=== PATIENT | female | born 1995 | race Caucasian/White ===

== ENCOUNTER 2017-05-06 20:14 | Emergency (ER) | payer BC ==
[2017-05-06] MEDS ORDERED: Adacel (T-DAP) 0.5 ML VIAL ONE (20:36)
[2017-05-06] MEDS ORDERED: Bacitracin Zinc 1 Packet ONE (21:52)
== END 2017-05-06 22:14 | disposition home or self-care (01) ==
LOC: NAV ERS 20:14
DX: S01.01XA Laceration without foreign body of scalp, initial encounter (principal); Z79.899 Other long term (current) drug therapy; V67.6XXA Passenger in heavy transport vehicle injured in collision with fixed or stationary object in traffic accident, initial encounter
CPT/HCPCS: 12004; 90471; 90715

== ENCOUNTER 2021-11-24 18:53 | Emergency (ER) | payer BC, SELFPAY ==
[2021-11-24] MEDS ORDERED: predniSONE 20 MG TAB ONE (19:09)
[2021-11-24] MEDS ORDERED: Sodium Chloride 0.9% 1,000 ML ONE (19:21)
[2021-11-24] MEDS ORDERED: Ketorolac Tromethamine 30 MG/ML VIAL ONE (20:31)
[2021-11-24] MEDS ORDERED: Albuterol Sulfate 2.5 mg/0.5 ml Neb ONE (20:31)
== END 2021-11-24 23:01 | disposition home or self-care (01) ==
LOC: NAV ERS 18:53
DX: J45.901 Unspecified asthma with (acute) exacerbation (principal)
CPT/HCPCS: 93005; 94640; 94760; 96361; 96374; J1885; J7050; J7512; J7611; J7620

== ENCOUNTER 2021-12-26 10:27 | Outpatient (CLI) | payer BC | END 2021-12-26 10:28 | disposition home or self-care (01) | LOC: NAV RAD 10:27 | PROVIDERS: ATTEND Nurse Practitioner Family | DX: J45.40 Moderate persistent asthma, uncomplicated (principal) | CPT/HCPCS: 71046 ==

== ENCOUNTER 2022-05-19 14:37 | Emergency (ER) | payer OTHER, BC ==
[2022-05-19] MEDS ORDERED: Ketorolac Tromethamine 60 MG/2 ML VIAL ONE (15:02)
== END 2022-05-19 15:57 | disposition home or self-care (01) ==
LOC: NAV ERS 14:37
DX: S63.502A Unspecified sprain of left wrist, initial encounter (principal); W01.0XXA Fall on same level from slipping, tripping and stumbling without subsequent striking against object, initial encounter
CPT/HCPCS: 96372; J1885

== ENCOUNTER 2024-04-08 18:44 | Emergency (ER) | payer OTHER ==
[2024-04-08] MEDS ORDERED: Ibuprofen 800 MG TAB ONE (19:34)
== END 2024-04-08 19:38 | disposition short-term general hospital (02) ==
LOC: NAV ERS 18:44
DX: M79.601 Pain in right arm (principal)
CPT/HCPCS: 99284

== ENCOUNTER 2024-12-11 05:10 | Emergency (ER) | payer OTHER ==
[2024-12-11] MEDS ORDERED: Naproxen 500 MG TAB ONE (05:32)
== END 2024-12-11 06:23 | disposition home or self-care (01) ==
LOC: NAV ERS 05:10
DX: S93.401A Sprain of unspecified ligament of right ankle, initial encounter (principal); R03.0 Elevated blood-pressure reading, without diagnosis of hypertension; Z79.899 Other long term (current) drug therapy; W18.42XA Slipping, tripping and stumbling without falling due to stepping into hole or opening, initial encounter; Y93.01 Activity, walking, marching and hiking; Y92.007 Garden or yard of unspecified non-institutional (private) residence as the place of occurrence of the external cause
CPT/HCPCS: 99283

== ENCOUNTER 2025-02-16 12:50 | Emergency (ER) | payer OTHER ==
[2025-02-16] MEDS ORDERED: Pantoprazole 40 MG VIAL ONE (13:51)
[2025-02-16] MEDS ORDERED: Famotidine/PF 20 mg/2ml Vial ONE (13:51)
[2025-02-16] MEDS ORDERED: Ondansetron PF 4 MG/2 ML Vial ONE ×2 (13:52→18:16)
[2025-02-16 14:05] LABS: #Basophils 0.1 thou/uL (0.0-0.2); #Eosinophils 0.1 thou/uL (0.0-0.7); #Lymphocytes 1.6 thou/uL (1.20-3.40); #Monocytes 0.8 thou/uL (0.11-0.59); #Neutrophils 5.9 thou/uL (1.40-6.50); %Basophils 1.3 % (0.0-1.0); %Eosinophils 1.3 % (0.0-10.0); %Lymphocytes 18.8 % (21.0-51.0); %Monocytes 9.7 % (0.0-10.0); %Neutrophils 68.9 % (42.0-75.0); Hematocrit 47.2 % (36.0-47.0); Hemoglobin 15.9 g/dL (12.0-16.0); Mean Corpuscular Hemoglobin 26.3 pg (27.0-31.0); Mean Corpuscular Volume 77.7 fl (78.0-98.0); Platelet Count 261 10x3/uL (130-400); Red Blood Cell (RBC) Count 6.07 mill/uL (4.20-5.40); White Blood Cell (WBC) Count 8.5 10x3/uL (4.8-10.8)
[2025-02-16 14:27] LABS: Glucose, Urine (Dipstick) 100 mg/dL (Negative); Leukocyte Moderate (Negative); Protein, Urine (Dipstick) 30 mg/dL (Neg-Trace); Specific Gravity, Urine 1.020 (1.005-1.030)
[2025-02-16 14:31] LABS: Troponin I Less than 0.010 ng/mL (< 0.028)
[2025-02-16 14:33] LABS: Bacteria/HPF 1+ HPF (None Seen); CAUTI Indications for Culture Fever or rigors; WBC/HPF 21-50 HPF (0-3)
[2025-02-16 14:34] LABS: Pregnancy Test - Urine (BHCG) Negative (Negative); Pregu Control Background? CLEAR/WHITE (CLR/WHITE); Pregu Control Bar Appear? YES (CONTROL BAR); Urine Culture Reflex Yes Yes
[2025-02-16 14:46] LABS: ALT (SGPT) 33 U/L (Less than 34); AST (SGOT) 39 U/L (11-34); Albumin 3.7 g/dL (3.1-4.5); Alkaline Phosphatase 76 U/L (40-110); Anion Gap 14 mmol/L (10-20); BUN (Urea Nitrogen) 10 mg/dL (7.0-18.7); Bilirubin, Total 0.4 mg/dL (0.3-1.2); Calc. Creatinine Clearance 0 mL/min (70-130); Calcium 9.1 mg/dL (7.8-10.44); Carbon Dioxide 24 mmol/L (22-29); Chloride 101 mmol/L (98-107); Globulin 3.8 g/dL (2.4-3.5); Glucose 97 mg/dL (70-105); Potassium 3.2 mmol/L (3.5-5.1); Sodium 136 mmol/L (136-145)
[2025-02-16] MEDS ORDERED: cefTRIAXone (ROCEPHIN) 1 GM VIAL ONE (16:59)
[2025-02-16] MEDS ORDERED: Ibuprofen 200 MG TAB ONE (17:28)
== END 2025-02-16 19:12 | disposition short-term general hospital (02) ==
LOC: NAV ERS 12:50
DX: U07.1 COVID-19 (principal); E86.0 Dehydration; N39.0 Urinary tract infection, site not specified; R00.0 Tachycardia, unspecified; R11.2 Nausea with vomiting, unspecified
CPT/HCPCS: 71045; 80053; 81001; 81025; 84484; 85025; 87086; 93005; 96361; 96365; 96375; 96376; J0696; J1308; J2405; J2470; J2550; J7030; J7120